=== PATIENT | female | born 2000 | race Caucasian/White ===

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

== ENCOUNTER → 2020-01-06 | Outpatient (REF) | payer OTHER | LOC: M LAB REF 17:53 | PROVIDERS: ATTEND Physician Assistant | DX: N76.0 Acute vaginitis (principal) ==

== ENCOUNTER 2021-06-21 10:15 | Emergency (ER) | payer OTHER ==
[~2021-06-21] VITALS: Ht 170.2 cm; Wt 74.0 kg
[2021-06-21 10:15] VITALS: BP 121/82
[~2021-06-21 10:15] MED LIST: DEPO150I12 IM; IBUP-1022 PO; IBUP200C25 PO; METH-1164 PO
[2021-06-21] MEDS ORDERED: ACETAMINOPHEN 325 MG TAB PO ONE (10:40)
[2021-06-21] MEDS ORDERED: ACET1TAB55 PO (10:43)
[2021-06-21] MEDS ORDERED: ONDANSETRON 4MG ORAL DISINTEGRATING TAB PO ONE (11:00)
[2021-06-21 11:37] LABS: RSV AMPLIFICATION NEGATIVE (NEGATIVE)
[2021-06-21] MEDS ORDERED: ONDA4TAB6 PO (13:50)
== END 2021-06-21 14:04 | disposition home or self-care (01) ==
LOC: M ED 10:15
DX: J09.X9 Influenza due to identified novel influenza A virus with other manifestations (principal); R11.2 Nausea with vomiting, unspecified

== ENCOUNTER → 2021-07-11 | Outpatient (REF) | payer OTHER ==
[~2021-07-11] MED LIST changes: +ACET1TAB55 PO; +ONDA4TAB6 PO
[2021-07-11 21:21] LABS: GC DNA AMPLIFICATION NEGATIVE (NEGATIVE)
== END ==
LOC: M LAB REF 18:56
PROVIDERS: ATTEND Internal Medicine
DX: R30.0 Dysuria (principal)